=== PATIENT | male | born 1965 | race Caucasian/White ===

== ENCOUNTER 2021-04-01 01:26 | Inpatient (IN) ==
[2021-04-01] MEDS ORDERED: ISOVUE-370 200 ML INFUS..BTL ONE (01:45)
[2021-04-01] MEDS ORDERED: 0.9 % Sodium Chloride 1,000 ML ONE (01:45)
[2021-04-01] MEDS ORDERED: *HR* Midazolam HCl 2 MG/2 ML VIAL ONE ×2 (01:45→02:47)
[2021-04-01] MEDS ORDERED: Heparin 1,000 UNITS/500 mL 500 ML ONE (01:45)
[2021-04-01] MEDS ORDERED: Nitroglycerin 1,000 MCG/5 ML VIAL IV ONE (01:45)
[2021-04-01] MEDS ORDERED: *HR* FentaNYL (PF) 100 MCG/2 ML VIAL ONE (01:45)
[2021-04-01] MEDS ORDERED: *HR* Heparin 10,000 UNIT/10 ML VIAL ONE ×2 (01:45→02:48)
[2021-04-01] MEDS ORDERED: Naloxone 0.4 MG/ML INJ IVP PRN (03:07)
[2021-04-01] MEDS ORDERED: Perflutren Lipid Microsphere 1.3 ML in 0.9 % Sodium Chloride 8.7 ML IVP PRN (03:07)
[2021-04-01 04:47] LABS: Basophils # 0.1 K/mcL (0.0-0.2); Basophils % 0.6 %; Eosinophils % 0.5 %; Hemoglobin 13.5 g/dL (12.9-16.9); Immature Granulocytes % 0.3 % (0-4); Lymphocytes # 1.8 K/mcL (0.6-4.6); Lymphocytes % 20.9 %; Mean Corpuscular HGB Conc 33.8 g/dL (31.6-35.5); Mean Corpuscular Hemoglobin 30.1 pg (28.0-33.3); Mean Corpuscular Volume 89.1 fL (83.0-100.0); Mean Platelet Volume 9.4 fL (9.4-12.4); Monocytes # 0.6 K/mcL (0.0-1.3); Neutrophils # 6.1 K/mcL (1.6-8.9); Platelet Count 246 K/mcL (140-400); Red Blood Count 4.49 M/mcL (4.19-5.50); Red Cell Distribution Width 12.4 % (11.5-14.5); Segmented Neutrophils % 70.7 %; White Blood Count 8.7 K/mcL (4.3-11.1)
[2021-04-01 05:04] LABS: BUN/Creatinine Ratio 15 (6-26); Blood Urea Nitrogen 15 mg/dL (6-20); Calcium 8.5 mg/dL (8.6-10.3); Carbon Dioxide 23 mEq/L (23-29); Chloride 104 mEq/L (98-107); Glucose 126 mg/dL (70-105); Osmolality,Calculated 282 (280-300); Potassium 4.1 mEq/L (3.5-5.1); Sodium 135 mEq/L (136-145); eGFR For African Americans > 60 (> 60); eGFR For Non-African Americans > 60 (> 60)
[2021-04-01 05:09] LABS: Troponin I 58.63 ng/mL (< 0.04)
[2021-04-01] MEDS: *HR* Ticagrelor 90 MG TABLET PO SCH ×2 (07:56→20:45)
[2021-04-01] MEDS: Aspirin 81 MG TAB.CHEW PO SCH (07:56)
[2021-04-01] MEDS: Metoprolol XL (24 HR) Succ 50 MG TAB.ER.24H PO SCH (08:39)
[2021-04-02] MEDS: Metoprolol XL (24 HR) Succ 50 MG TAB.ER.24H PO SCH (08:01)
[2021-04-02] MEDS: *HR* Ticagrelor 90 MG TABLET PO SCH ×2 (08:01→20:40)
[2021-04-02] MEDS: Aspirin 81 MG TAB.CHEW PO SCH (08:02)
[2021-04-03 07:15] VITALS: TEMP 98.7
[2021-04-03] MEDS: *HR* Ticagrelor 90 MG TABLET PO SCH (09:22)
[2021-04-03] MEDS: Aspirin 81 MG TAB.CHEW PO SCH (09:22)
[2021-04-03] MEDS: Metoprolol XL (24 HR) Succ 50 MG TAB.ER.24H PO SCH (09:22)
[2021-04-03 09:23] LABS: Basophils # 0.1 K/mcL (0.0-0.2); Basophils % 0.7 %; Eosinophils # 0.1 K/mcL (0.0-0.6); Eosinophils % 1.6 %; Hematocrit 48.2 % (37.5-50.1); Immature Granulocytes % 0.4 % (0-4); Lymphocytes # 2.3 K/mcL (0.6-4.6); Lymphocytes % 30.3 %; Mean Corpuscular HGB Conc 33.6 g/dL (31.6-35.5); Mean Corpuscular Hemoglobin 30.1 pg (28.0-33.3); Mean Corpuscular Volume 89.6 fL (83.0-100.0); Mean Platelet Volume 9.2 fL (9.4-12.4); Monocytes # 0.7 K/mcL (0.0-1.3); Monocytes % 8.9 %; Neutrophils # 4.4 K/mcL (1.6-8.9); Platelet Count 304 K/mcL (140-400); Red Blood Count 5.38 M/mcL (4.19-5.50); Red Cell Distribution Width 12.8 % (11.5-14.5); Segmented Neutrophils % 58.1 %; White Blood Count 7.6 K/mcL (4.3-11.1)
[2021-04-03 09:30] LABS: Hemoglobin 16.2 g/dL (12.9-16.9)
[2021-04-03 09:31] VITALS: BP 111/76; PULSE 102; O2SAT 94
== END 2021-04-03 12:10 | disposition home or self-care (01) | DRG 174 ==
LOC: ICNU → 2NNU 21:52
PROVIDERS: ADMIT Internal Medicine; ATTEND Internal Medicine